=== PATIENT | male | born 1955 | race Caucasian/White ===

== ENCOUNTER → 2017-06-20 | Outpatient (CLI) | payer MEDICARE, OTHER ==
[~2017-06-20] MED LIST: ALPR1TAB6 PO; DICL50TA2 PO; HYDR-2868 PO; METO-269 PO; TEST200V3 IM; VALS160T3 PO
--- NOTE | 2017-06-20 19:12 | RAD ---
APPROVED REPORT Patient Location: OUT-PATIENT Indications Claudication:Bilaterally Rest Pain:Bilaterally Numbness/Tingling rt groin pain Findings: Causey scale images demonstrate mild atherosclerotic plaque without obvious obstructive disease. Spectral waveforms are triphasic in nature bilaterally from the [employer] ASSISTANT to the DPA. There is three vessel run-off below the knee bilaterally. No focal high grade stenosis identified. Incidental finding of right groin lymph node measuring approximately 2.2 x 0.9 x 2.8 cm. Risk Factors Hypertension VELOCITY AND DOPPLER WAVEFORM ANALYSIS RIGHT cm/secWaveformSeverity LEFT c m/secWaveformSeverity pCFA 91.1pCFA 67.9 Prof Fem Art. 53.8Prof Fem Art. 59.5 Fem Art Prox. 67.2Fem Art Prox. 103.0 Fem Art Mid. 92.5Fem Art Mid. 76.4 Fem Art Dist. 99.1Fem Art Dist. 49.9 Pop Art(Fossa) 53.7Pop Art(Fossa) 49.1 HAMMERER TAB Dist. 71.7PTA Dist. 97.5 Per Art Dist. 44.2Per Art Dist. 64.3 IGNACIO Dist. 69.9ATA Dist. 74.3 Critical Notification Critical Value: No <Conclusion> 1. No arterial occlusive disease noted. 2. Incidental right groin lymph node as described above. 3. Consider further evaluation of the right groin with CT scan of the abd/pelvis to rule out addition al lymphadenopathy.
== END | disposition home or self-care (01) ==
LOC: KCIC US 10:39
PROVIDERS: ATTEND Physician Assistant Surgical
DX: I73.9 Peripheral vascular disease, unspecified (principal); R10.31 Right lower quadrant pain; R20.0 Anesthesia of skin; R20.2 Paresthesia of skin
CPT/HCPCS: 93925

== ENCOUNTER → 2017-06-26 | Outpatient (CLI) | payer MEDICARE, OTHER ==
[~2017-06-26] MED LIST changes: +IOHEXOL 240 MG/ML 50ML VIAL. IV ONE; +IOHEXOL 240 MG/ML 50ML VIAL. PO ONE; +IOHEXOL 300 MG/ML 100ML VIAL. IV ONE
--- NOTE | 2017-06-26 14:22 | KCIC ---
CT CHEST ABD PELVIS W/CONTRAST dated 06/26/2017 12:00 PM Indication: Shortness of air, lymphadenopathy on recent ultrasound, right inguinal hernia, asbestos exposure Comparison: 11/12/2013 CT abdomen and pelvis exam. There is no previous chest CT available for comparison. Technique: After administration of intravenous contrast and oral contrast, CT imaging was performed of the chest, abdomen, pelvis. Multiplanar reconstruction images are submitted. Exposure: One or more of the following individualized dose reduction techniques were utilized for this examination: 1. Automated exposure control 2. Adjustment of the mA and/or kV according to patient size 3. Use of iterative reconstruction technique. Contrast: 100 cc Omnipaque 300 CHEST: Findings: Tubular ascending thoracic aorta is somewhat dilated up to 4 cm, aortic root on the order of 4.3 cm. 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 No significantly enlarged mediastinal lymph nodes are identified. There are axillary nodes bilaterally, largest on the left somewhat prominent 1.4 cm short axis dimension, other nodes which are much smaller. Major airways are patent. There is moderate sized hiatal hernia. There are couple of noncalcified right lower lobe nodules, largest 0.6 cm axial images 37. There are a few other tiny noncalcified nodules such as right upper lobe axial image 24, left upper lobe axial image 35, left lower lobe axial image 43, and left upper lobe axial images 38 and 40. There is multilevel thoracic degenerative disc disease, also degenerative disc disease and spondylosis of visualized superior cervical levels at which there is at least moderate spinal stenosis.. Impression 1. There is mild dilatation of the ascending thoracic aorta, also the aortic root up to 4.3 cm. 2. There are some nonspecific axillary nodes, borderline enlarged on the left. 3. There is moderate size hiatal hernia. 4. There are some scattered small pulmonary incidental nodules, largest right lower lobe 0.6 cm. As per revised Fleischner guidelines, 3-6 month follow is recommended. Abdomen and pelvis: FINDINGS: There is again elevation of the right hemidiaphragm. No focal abnormality is identified of the liver or pancreas. There are splenic granulomas. Not seen on previous exam, there is a small hypodense lesion of the spleen 0.8 cm otherwise difficult to accurately characterize. There is again accessory spleen at the splenic hilum. Both kidneys enhance, no hydronephrosis. Gallbladder is present without obvious intraluminal abnormality by CT. Bowel is not significantly dilated. There is no free air or free fluid. There again has been previous exam left inguinal hernia repair. There is again some fat in the inguinal canals, no bowel. There is multilevel advanced degenerative disc disease throughout lumbar spine, also at the T10-11 level. There is multilevel mild spondylosis. There is [id number] dextroscoliosis of the lumbar spine. 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 No significantly enlarged lymph nodes are identified. IMPRESSION: 1. No acute abnormality is identified. 2. There is a small hypodense lesion of the spleen not clearly seen previously, otherwise difficult to accurately characterize. 3. 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 4. There is multilevel advanced degenerative disc disease throughout lumbar spine. 5. There is again elevation of the right hemidiaphragm. Electronically signed by: Ken Jones MD (06/26/2017 2:19 PM) [id number]
== END | disposition home or self-care (01) ==
LOC: KCIC CT 10:38
PROVIDERS: ATTEND Family Medicine
DX: K44.9 Diaphragmatic hernia without obstruction or gangrene (principal); M51.36 Other intervertebral disc degeneration, lumbar region; R91.8 Other nonspecific abnormal finding of lung field; R59.1 Generalized enlarged lymph nodes; Z77.090 Contact with and (suspected) exposure to asbestos
CPT/HCPCS: 71260; 74177; Q9966; Q9967